=== PATIENT | female | born 1960 | race Caucasian/White ===

== ENCOUNTER 2023-09-29 19:37 | Emergency (ER) | payer BC, OTHER ==
[2023-09-29 20:26] VITALS: BP 133/68; PULSE 83
[2023-09-29] MEDS ORDERED: Lidocaine 1% 5 ML VIAL INJECT ONE (20:36)
[2023-09-29] MEDS ORDERED: Bacitracin Oint 1 GM U/D Packet TOP ONE (20:36)
== END 2023-09-29 21:31 | disposition home or self-care (01) ==
LOC: JP.ED 19:37
DX: S61.011A Laceration without foreign body of right thumb without damage to nail, initial encounter (principal); F10.920 Alcohol use, unspecified with intoxication, uncomplicated; Z90.49 Acquired absence of other specified parts of digestive tract; Z91.040 Latex allergy status; Z79.899 Other long term (current) drug therapy; W26.8XXA Contact with other sharp object(s), not elsewhere classified, initial encounter
CPT/HCPCS: 12001; 99282